=== PATIENT | male | born 1985 | race Caucasian/White ===

== ENCOUNTER 2017-12-02 02:23 | Inpatient (IN) | payer MEDICAID, OTHER ==
[~2017-12-02] VITALS: Ht 182.9 cm; Wt 79.9 kg
[~2017-12-02 02:23] MED LIST: CLIN-79 PO; IBUP-1574 PO
[2017-12-02] MEDS ORDERED: piperacillin/tazo 3.375gm/50ml 50 ML IV ONE (02:45)
[2017-12-02] MEDS ORDERED: MORPHINE 2MG in 2ml NS syringe IV PRN (02:45)
[2017-12-02] MEDS ORDERED: vancomycin/NS 1 GM ADD-VANTAGE 250 ML IV ONE (02:45)
[2017-12-02] MEDS ORDERED: normal saline 1000ML IV soln IV ONE (02:45)
[2017-12-02] MEDS ORDERED: ondansetron/PF 4mg/2ml inj IV ONE (02:45)
[2017-12-02] MEDS ORDERED: iohexol 300mg/ml 100ml inj. ONE (02:49)
[2017-12-02 03:16] LABS: BASOPHILS % (AUTO) 0.6 % (0-1); EOSINOPHILS # (AUTO) 0.6 X10'3 (0-0.9); EOSINOPHILS % (AUTO) 9.1 % (0-6); HEMATOCRIT 34.6 % (42.0-52.0); HEMOGLOBIN 12.1 g/dl (14.0-17.9); LYMPHOCYTES # (AUTO) 1.8 X10'3 (1.1-4.8); LYMPHOCYTES % (AUTO) 28.1 % (21-51); MEAN CORPUSCULAR HEMOGLOBIN 32.1 PG (27.0-31.0); MEAN CORPUSCULAR HGB CONC 34.9 % (33.0-36.5); MEAN CORPUSCULAR VOLUME 91.9 FL (78-98); MEAN PLATELET VOLUME 7.8 FL (7.4-10.4); MONOCYTES # (AUTO) 0.5 X10'3 (0-0.9); MONOCYTES % (AUTO) 8.4 % (2-12); NEUTROPHILS # (AUTO) 3.5 X10'3 (1.8-7.7); NEUTROPHILS % (AUTO) 53.8 % (42-75); PLATELET COUNT 166 X10'3 (140-440); RED BLOOD COUNT 3.76 X10'6 (4.70-6.10); RED CELL DISTRIBUTION WIDTH 13.3 % (11.5-14.5); WHITE BLOOD COUNT 6.5 X10'3 (4.5-11.0)
[2017-12-02 03:31] LABS: ALANINE AMINOTRANSFERASE 20 U/L (12-78); ALBUMIN 3.5 G/DL (3.4-5.0); ALBUMIN/GLOBULIN RATIO 0.8 (1.1-1.5); ALKALINE PHOSPHATASE 101 IU/L (46-116); ANION GAP 10 (8-16); ASPARTATE AMINO TRANSFERASE 22 U/L (10-37); BILIRUBIN,TOTAL 0.3 MG/DL (0.1-1.0); BLOOD UREA NITROGEN 14 MG/DL (7-18); BUN/CREATININE RATIO 14.7 (5.4-32.0); CALCIUM 8.7 MG/DL (8.5-10.1); CHLORIDE 102 MMOL/L (99-107); CREATININE 0.95 MG/DL (0.60-1.10); GLUCOSE 119 MG/DL (70-104); MAGNESIUM 2.2 MG/DL (1.5-2.4); POTASSIUM 3.3 MMOL/L (3.5-5.1); SODIUM 139 MMOL/L (135-145); TOTAL CARBON DIOXIDE 26.7 MMOL/L (24-32); TOTAL PROTEIN 8.1 G/DL (6.4-8.2); eGFR > 90 ML/MIN
[2017-12-02] MEDS ORDERED: magnesium 2GM in 50ml NS 50 ML IV PRN (09:25)
[2017-12-02] MEDS ORDERED: mag hydrox/Alum hydrox/simeth 30ml oral suspension PO PRN (09:25)
[2017-12-02] MEDS ORDERED: magnesium Cl slow-release 64mg tablet PO PRN (09:25)
[2017-12-02] MEDS ORDERED: magnesium hydroxide 30ml (MOM) UD suspension PO PRN (09:25)
[2017-12-02] MEDS ORDERED: potassium Cl 20 mEq SR tablet PO PRN ×2 (09:25)
[2017-12-02] MEDS ORDERED: HYDROcodone/acetaminophen 5mg/325mg tablet PO PRN (09:25)
[2017-12-02] MEDS ORDERED: bisacodyl 10mg suppository rectal RC PRN (09:25)
[2017-12-02] MEDS ORDERED: ondansetron/PF 4mg/2ml inj IV PRN (09:25)
[2017-12-02] MEDS ORDERED: magnesium 4gm in 100ml NS 100 ML IV PRN (09:25)
[2017-12-02] MEDS ORDERED: morphine 4 MG/ML inj SYRINge IV PRN (09:25)
[2017-12-02] MEDS ORDERED: acetaminophen 325mg tablet PO PRN (09:25)
[2017-12-02] MEDS ORDERED: potassium Cl 40MEQ/NS 500ml 500 ML IV PRN ×2 (09:25)
[2017-12-02 10:30] VITALS: BP 122/65
[2017-12-02] MEDS: HYDROcodone/acetaminophen 10/325mg tab PO PRN (10:31)
[2017-12-02] MEDS: potassium Cl 20mEq in NS 1,000 ML IV SCH ×3 (10:52→23:28)
[2017-12-02] MEDS: piperacillin/tazo 4.5gm/100ml 100 ML IV SCH ×3 (10:52→23:27)
[2017-12-02 11:00] VITALS: BP 105/64
[2017-12-02] MEDS: ibuprofen tablet 400 MG TABLET PO SCH ×2 (12:50→16:35)
[2017-12-02] MEDS: morphine 4 MG/ML inj SYRINge IV PRN ×3 (12:50→23:42)
[2017-12-02] MEDS: linezolid 600mg/300ml PREMIX 300 ML IV SCH ×2 (12:50→19:38)
[2017-12-02] MEDS: nicotine 14mg patch - 24hr TD SCH (12:51)
[2017-12-02] MEDS ORDERED: ringers solution, lacted 1,000 ML IV ONE (15:11)
[2017-12-02 18:00] VITALS: BP 109/64
[2017-12-02] MEDS ORDERED: NO HOME MEDS (18:49)
[2017-12-02] MEDS: lactobacillus rhamnosus 10,000 MMU CELLS/CAPSULE PO SCH (19:39)
[2017-12-02] MEDS: docusate sod 100mg capsule PO SCH (19:39)
[2017-12-03] VITALS (19 sets, daily range): BP systolic 109–137; BP diastolic 52–83
[2017-12-03 05:13] LABS: BASOPHILS % (AUTO) 0.5 % (0-1); EOSINOPHILS # (AUTO) 0.5 X10'3 (0-0.9); EOSINOPHILS % (AUTO) 11.6 % (0-6); HEMATOCRIT 32.8 % (42.0-52.0); HEMOGLOBIN 11.1 g/dl (14.0-17.9); LYMPHOCYTES # (AUTO) 1.4 X10'3 (1.1-4.8); MEAN CORPUSCULAR HEMOGLOBIN 31.6 PG (27.0-31.0); MEAN CORPUSCULAR VOLUME 93.1 FL (78-98); MONOCYTES # (AUTO) 0.4 X10'3 (0-0.9); MONOCYTES % (AUTO) 7.9 % (2-12); NEUTROPHILS # (AUTO) 2.2 X10'3 (1.8-7.7); PLATELET COUNT 165 X10'3 (140-440); RED BLOOD COUNT 3.52 X10'6 (4.70-6.10); RED CELL DISTRIBUTION WIDTH 13.5 % (11.5-14.5); WHITE BLOOD COUNT 4.5 X10'3 (4.5-11.0)
[2017-12-03 05:50] LABS: ALBUMIN 2.6 G/DL (3.4-5.0); ANION GAP 5 (8-16); BLOOD UREA NITROGEN 12 MG/DL (7-18); BUN/CREATININE RATIO 15.6 (5.4-32.0); CALCIUM 8.4 MG/DL (8.5-10.1); CHLORIDE 108 MMOL/L (99-107); CREATININE 0.77 MG/DL (0.60-1.10); GLUCOSE 106 MG/DL (70-104); MAGNESIUM 2.2 MG/DL (1.5-2.4); POTASSIUM 4.8 MMOL/L (3.5-5.1); SODIUM 142 MMOL/L (135-145); TOTAL CARBON DIOXIDE 28.9 MMOL/L (24-32); eGFR > 90 ML/MIN
[2017-12-03] MEDS ORDERED: ringers solution, lacted 1,000 ML IV SCH (06:43)
[2017-12-03] MEDS ORDERED: labetalol 5mg/ml 20ml inj. IV PRN (06:45)
[2017-12-03] MEDS ORDERED: fentaNYL/PF 50MCG/1 ML 2ML syringe IV PRN ×2 (06:45)
[2017-12-03] MEDS ORDERED: morphine 4 MG/ML inj SYRINge IV PRN (06:45)
[2017-12-03] MEDS ORDERED: ondansetron/PF 4mg/2ml inj IV PRN (06:45)
[2017-12-03] MEDS ORDERED: hydrALAZINE 20mg/ml inj. IV PRN (06:45)
[2017-12-03] MEDS: linezolid 600mg/300ml PREMIX 300 ML IV SCH ×2 (07:07→20:27)
[2017-12-03] MEDS: morphine 4 MG/ML inj SYRINge IV PRN ×6 (07:07→20:29)
[2017-12-03] MEDS ORDERED: sevoflurane 250ml liquid IH ONE (07:39)
[2017-12-03] MEDS ORDERED: propofol inj 20 ML IV ONE (07:43)
[2017-12-03] MEDS ORDERED: LIDOcaine 1%/PF (10mg/ml) 5ml vial ONE (07:43)
[2017-12-03] MEDS ORDERED: midazolam 2 mg/2 ml injection ONE (07:43)
[2017-12-03] MEDS ORDERED: fentaNYL/PF 50MCG/1 ML 2ML syringe ONE (07:43)
[2017-12-03] MEDS: piperacillin/tazo 4.5gm/100ml 100 ML IV SCH ×2 (08:00→16:26)
[2017-12-03] MEDS: K and/or MAG REPLACEMENT MC SCH (08:00)
[2017-12-03] MEDS ORDERED: morphine 10mg/ml inj. ONE (08:16)
[2017-12-03] MEDS: lactobacillus rhamnosus 10,000 MMU CELLS/CAPSULE PO SCH ×2 (11:08→20:27)
[2017-12-03] MEDS: docusate sod 100mg capsule PO SCH ×2 (11:08→20:27)
[2017-12-03] MEDS: nicotine 14mg patch - 24hr TD SCH (11:08)
[2017-12-03] MEDS: ibuprofen tablet 400 MG TABLET PO SCH ×3 (11:08→17:44)
[2017-12-03] MEDS: enoxaparin 40mg/0.4ml syringe SUBCUT SCH (11:10)
[2017-12-03] MEDS: potassium Cl 20mEq in NS 1,000 ML IV SCH ×2 (11:12→20:31)
[2017-12-04] MEDS: piperacillin/tazo 4.5gm/100ml 100 ML IV SCH ×4 (00:02→23:28)
[2017-12-04 00:31] VITALS: BP 114/72
[2017-12-04 06:05] LABS: ALBUMIN 2.6 G/DL (3.4-5.0); ANION GAP 5 (8-16); BLOOD UREA NITROGEN 6 MG/DL (7-18); BUN/CREATININE RATIO 7.2 (5.4-32.0); CALCIUM 8.3 MG/DL (8.5-10.1); CHLORIDE 108 MMOL/L (99-107); CREATININE 0.83 MG/DL (0.60-1.10); GLUCOSE 94 MG/DL (70-104); POTASSIUM 4.4 MMOL/L (3.5-5.1); SODIUM 141 MMOL/L (135-145); TOTAL CARBON DIOXIDE 28.4 MMOL/L (24-32); eGFR > 90 ML/MIN
[2017-12-04 07:24] VITALS: BP 127/73
[2017-12-04] MEDS: K and/or MAG REPLACEMENT MC SCH (08:00)
[2017-12-04] MEDS: lactobacillus rhamnosus 10,000 MMU CELLS/CAPSULE PO SCH ×2 (09:15→19:57)
[2017-12-04] MEDS: ibuprofen tablet 400 MG TABLET PO SCH ×3 (09:15→18:45)
[2017-12-04] MEDS: docusate sod 100mg capsule PO SCH ×2 (09:16→19:48)
[2017-12-04] MEDS: nicotine 14mg patch - 24hr TD SCH (09:18)
[2017-12-04] MEDS: morphine 4 MG/ML inj SYRINge IV PRN ×4 (09:19→22:31)
[2017-12-04] MEDS: enoxaparin 40mg/0.4ml syringe SUBCUT SCH (09:20)
[2017-12-04] MEDS: linezolid 600mg/300ml PREMIX 300 ML IV SCH (10:37)
[2017-12-04 12:00] VITALS: BP 130/53
[2017-12-04] MEDS: potassium Cl 20mEq in NS 1,000 ML IV SCH ×2 (13:57→20:21)
[2017-12-04] MEDS: linezolid 600mg tablet PO SCH (19:57)
[2017-12-04 20:00] VITALS: BP 131/74
[2017-12-05] VITALS: BP 123/71
[2017-12-05] MEDS: potassium Cl 20mEq in NS 1,000 ML IV SCH (01:48)
[2017-12-05 06:11] LABS: BASOPHILS % (AUTO) 0.7 % (0-1); EOSINOPHILS # (AUTO) 0.5 X10'3 (0-0.9); EOSINOPHILS % (AUTO) 9.5 % (0-6); HEMATOCRIT 34.3 % (42.0-52.0); HEMOGLOBIN 11.7 g/dl (14.0-17.9); LYMPHOCYTES # (AUTO) 1.6 X10'3 (1.1-4.8); LYMPHOCYTES % (AUTO) 31.8 % (21-51); MEAN CORPUSCULAR HEMOGLOBIN 31.6 PG (27.0-31.0); MEAN CORPUSCULAR VOLUME 93.1 FL (78-98); MEAN PLATELET VOLUME 7.3 FL (7.4-10.4); MONOCYTES # (AUTO) 0.4 X10'3 (0-0.9); MONOCYTES % (AUTO) 7.5 % (2-12); NEUTROPHILS # (AUTO) 2.6 X10'3 (1.8-7.7); NEUTROPHILS % (AUTO) 50.5 % (42-75); PLATELET COUNT 192 X10'3 (140-440); RED BLOOD COUNT 3.69 X10'6 (4.70-6.10); RED CELL DISTRIBUTION WIDTH 13.2 % (11.5-14.5); WHITE BLOOD COUNT 5.1 X10'3 (4.5-11.0)
[2017-12-05 06:20] LABS: ALBUMIN 2.6 G/DL (3.4-5.0); ANION GAP 8 (8-16); BLOOD UREA NITROGEN 8 MG/DL (7-18); BUN/CREATININE RATIO 9.8 (5.4-32.0); CALCIUM 8.2 MG/DL (8.5-10.1); CHLORIDE 108 MMOL/L (99-107); CREATININE 0.82 MG/DL (0.60-1.10); GLUCOSE 103 MG/DL (70-104); MAGNESIUM 2.2 MG/DL (1.5-2.4); POTASSIUM 4.3 MMOL/L (3.5-5.1); SODIUM 142 MMOL/L (135-145); TOTAL CARBON DIOXIDE 26.4 MMOL/L (24-32); eGFR > 90 ML/MIN
[2017-12-05] MEDS: K and/or MAG REPLACEMENT MC SCH (06:43)
[2017-12-05 07:00] VITALS: BP 126/65
[2017-12-05] MEDS: nicotine 14mg patch - 24hr TD SCH ×2 (08:00→08:14)
[2017-12-05] MEDS: ibuprofen tablet 400 MG TABLET PO SCH (08:05)
[2017-12-05] MEDS: docusate sod 100mg capsule PO SCH (08:05)
[2017-12-05] MEDS: piperacillin/tazo 4.5gm/100ml 100 ML IV SCH (08:05)
[2017-12-05] MEDS: lactobacillus rhamnosus 10,000 MMU CELLS/CAPSULE PO SCH (08:05)
[2017-12-05] MEDS: enoxaparin 40mg/0.4ml syringe SUBCUT SCH (08:06)
[2017-12-05] MEDS: linezolid 600mg tablet PO SCH (08:06)
[2017-12-05] MEDS: HYDROcodone/acetaminophen 10/325mg tab PO PRN (08:19)
[2017-12-05] MEDS ORDERED: AMOX-580 PO (09:45)
[2017-12-05 11:43] VITALS: BP 128/78
== END 2017-12-05 12:15 | disposition home or self-care (01) | DRG 581 ==
LOC: ER 02:23 → ED HOLD 08:26 → EDBEDREQ 09:30 → MED 3N 10:20 → PACU 12-03 08:00 → MED 3N 12-03 10:37
PROVIDERS: ADMIT Internal Medicine; ATTEND Family Medicine
PROC: BQ2R1ZZ Computerized Tomography (CT Scan) of Right Lower Extremity using Low Osmolar Contrast (ICD-10-PCS; 2017-12-02)
PROC: 0J9N0ZZ Drainage of Right Lower Leg Subcutaneous Tissue and Fascia, Open Approach (ICD-10-PCS; principal; 2017-12-03 07:44)
DX: L03.115 Cellulitis of right lower limb (principal); D64.9 Anemia, unspecified; L02.415 Cutaneous abscess of right lower limb; E87.6 Hypokalemia; F15.10 Other stimulant abuse, uncomplicated; F17.210 Nicotine dependence, cigarettes, uncomplicated; Z79.899 Other long term (current) drug therapy; Z83.3 Family history of diabetes mellitus
CPT/HCPCS: 96365; 96366; 96368; 96375; 99285; Z7506; 36415; 71045; 73701; 80048; 80053; 83605; 83735; 84145; 85025; 87040; 87070; 87075; 87077; 87102; 87185; 87186; 93971; A4414; A4649; A6212; A6222; A6223; A6255; A6446; A6449; A7000; J1650; J2001; J2020; J2250; J2270; J2274; J2405; J2543; J2704; J3010; J3370; J7030; J7120; Q9967

== ENCOUNTER 2018-03-11 08:40 | Emergency (ER) | payer OTHER ==
[~2018-03-11] VITALS: Ht 167.6 cm; Wt 95.0 kg
[2018-03-11 09:07] LABS: BASOPHILS % (AUTO) 0.4 % (0-1); EOSINOPHILS # (AUTO) 0.7 X10'3 (0-0.9); EOSINOPHILS % (AUTO) 9.6 % (0-6); HEMATOCRIT 41.2 % (42.0-52.0); HEMOGLOBIN 14.1 g/dl (14.0-17.9); LYMPHOCYTES # (AUTO) 2.2 X10'3 (1.1-4.8); LYMPHOCYTES % (AUTO) 30.8 % (21-51); MEAN CORPUSCULAR HEMOGLOBIN 30.9 PG (27.0-31.0); MEAN CORPUSCULAR HGB CONC 34.3 % (33.0-36.5); MEAN PLATELET VOLUME 7.2 FL (7.4-10.4); MONOCYTES # (AUTO) 0.5 X10'3 (0-0.9); NEUTROPHILS # (AUTO) 3.8 X10'3 (1.8-7.7); NEUTROPHILS % (AUTO) 52.2 % (42-75); PLATELET COUNT 311 X10'3 (140-440); RED BLOOD COUNT 4.57 X10'6 (4.70-6.10); WHITE BLOOD COUNT 7.3 X10'3 (4.5-11.0)
[2018-03-11] MEDS ORDERED: SULF1TAB49 PO (09:28)
[2018-03-11] MEDS ORDERED: CEPH-572 PO (09:28)
[2018-03-11 09:33] LABS: ALANINE AMINOTRANSFERASE 16 U/L (12-78); ALBUMIN 4.2 G/DL (3.4-5.0); ALBUMIN/GLOBULIN RATIO 0.8 (1.1-1.5); ALKALINE PHOSPHATASE 135 IU/L (46-116); ANION GAP 6 (8-16); ASPARTATE AMINO TRANSFERASE 16 U/L (10-37); BILIRUBIN,TOTAL 0.2 MG/DL (0.1-1.0); BLOOD UREA NITROGEN 16 MG/DL (7-18); BUN/CREATININE RATIO 15.7 (5.4-32.0); CALCIUM 9.3 MG/DL (8.5-10.1); CHLORIDE 101 MMOL/L (99-107); CREATININE 1.02 MG/DL (0.60-1.10); GLUCOSE 110 MG/DL (70-104); POTASSIUM 3.4 MMOL/L (3.5-5.1); SODIUM 138 MMOL/L (135-145); TOTAL CARBON DIOXIDE 30.7 MMOL/L (24-32); TOTAL PROTEIN 9.4 G/DL (6.4-8.2); eGFR 85 ML/MIN
[2018-03-11 09:53] VITALS: BP 140/79
== END 2018-03-11 09:54 | disposition home or self-care (01) ==
LOC: ER 08:40
DX: L97.818 Non-pressure chronic ulcer of other part of right lower leg with other specified severity (principal); F15.90 Other stimulant use, unspecified, uncomplicated; F11.90 Opioid use, unspecified, uncomplicated
CPT/HCPCS: 36415; 80053; 85025; 99284; A6449

== ENCOUNTER 2018-04-25 13:16 | Emergency (ER) | payer MEDICAID, OTHER ==
[~2018-04-25] VITALS: Ht 182.9 cm; Wt 93.2 kg
[2018-04-25] MEDS ORDERED: HYDROcodone/acetaminophen 10/325mg tab PO STA (13:37)
[2018-04-25] MEDS ORDERED: HYDROmorphone 1 mg/ml syringe IM ONE (14:35)
[2018-04-25] MEDS ORDERED: ondansetron 4mg rapidly disintigrating tab PO ONE (14:35)
[2018-04-25] MEDS ORDERED: ibuprofen tablet 400 MG TABLET PO ONE (14:40)
[2018-04-25] MEDS ORDERED: OXYC-138 PO (15:14)
[2018-04-25] MEDS ORDERED: oxyCODONE/APAP 10/325mg tablet PO ONE (16:25)
[2018-04-25 16:35] VITALS: BP 140/85
== END 2018-04-25 16:45 | disposition home or self-care (01) ==
LOC: ER 13:16
DX: S92.002A Unspecified fracture of left calcaneus, initial encounter for closed fracture (principal); F15.90 Other stimulant use, unspecified, uncomplicated; F11.90 Opioid use, unspecified, uncomplicated; Z79.899 Other long term (current) drug therapy; W17.89XA Other fall from one level to another, initial encounter; Y93.89 Activity, other specified; Y92.89 Other specified places as the place of occurrence of the external cause; Y99.8 Other external cause status
CPT/HCPCS: 72100; 73502; 73630; 73700; 96372; 99284; J1170; 29515

== ENCOUNTER 2018-05-08 13:33 | Outpatient (CLI) | payer MEDICAID, OTHER ==
[2018-05-08 13:23] VITALS: BP 124/63
[~2018-05-08 13:33] MED LIST changes: -CLIN-79 PO; -IBUP-1574 PO; +OXYC-138 PO
[2018-05-08 16:55] VITALS: BP 124/63
== END 2018-05-08 14:18 | disposition home or self-care (01) ==
LOC: ORTHO 13:33
PROVIDERS: ATTEND Nurse Practitioner Family
DX: S92.022A Displaced fracture of anterior process of left calcaneus, initial encounter for closed fracture (principal); M79.89 Other specified soft tissue disorders; F17.210 Nicotine dependence, cigarettes, uncomplicated; F15.90 Other stimulant use, unspecified, uncomplicated; J45.909 Unspecified asthma, uncomplicated; Z91.19 Patient's noncompliance with other medical treatment and regimen; X58.XXXA Exposure to other specified factors, initial encounter; Y93.89 Activity, other specified; Y92.89 Other specified places as the place of occurrence of the external cause; Y99.8 Other external cause status
CPT/HCPCS: 73650

== ENCOUNTER 2018-05-11 11:57 | Outpatient (CLI) | payer MEDICAID, OTHER ==
[2018-05-11 11:52] VITALS: BP 131/82
== END 2018-05-11 13:15 | disposition home or self-care (01) ==
LOC: ORTHO 11:57
PROVIDERS: ATTEND Nurse Practitioner Family
DX: S92.042 Displaced other fracture of tuberosity of left calcaneus (principal); F15.90 Other stimulant use, unspecified, uncomplicated; F11.90 Opioid use, unspecified, uncomplicated; F17.210 Nicotine dependence, cigarettes, uncomplicated; W13.2XXD Fall from, out of or through roof, subsequent encounter
CPT/HCPCS: 99213

== ENCOUNTER 2018-07-29 14:38 | Emergency (ER) | payer MEDICAID, OTHER ==
[~2018-07-29] VITALS: Ht 182.9 cm; Wt 95.0 kg
[2018-07-29] MEDS ORDERED: CEPH-572 PO (15:29)
[2018-07-29] MEDS ORDERED: SULF1TAB49 PO (15:29)
[2018-07-29] MEDS ORDERED: bacitracin 15gm ointment TP ONE (15:45)
--- NOTE | 2018-07-29 15:58 | NUR ---
melissa wrap applied to right lower leg with non adherent dressing.
[2018-07-29 15:59] VITALS: BP 125/77
== END 2018-07-29 16:00 | disposition home or self-care (01) ==
LOC: ER 14:39
DX: L03.115 Cellulitis of right lower limb (principal); L97.919 Non-pressure chronic ulcer of unspecified part of right lower leg with unspecified severity; J45.909 Unspecified asthma, uncomplicated; F12.90 Cannabis use, unspecified, uncomplicated; Z98.890 Other specified postprocedural states; Z79.2 Long term (current) use of antibiotics; Z79.899 Other long term (current) drug therapy
CPT/HCPCS: 99284